=== PATIENT | female | born 1980 ===

== ENCOUNTER 2018-04-16 13:05 | Emergency (ER) | payer SELFPAY ==
[2018-04-16 13:11] VITALS: TEMP 98.3
[2018-04-16] MEDS ORDERED: Tdap Vaccine 0.5 ml Vial (10-64 yrs) IM ONE ×2 (13:52→14:01)
[2018-04-16] MEDS ORDERED: Epinephrine /Lidocaine HCL 1:100,000/2% 30 ml INJ STA (13:52)
[2018-04-16] MEDS ORDERED: Lidocaine 2% w Epi 1:200,000 Pf Inj IJ ONE (14:15)
[2018-04-16 14:46] VITALS: BP 147/89; PULSE 89; RESP 20; O2SAT 97
--- NOTE | 2018-04-16 16:36 | C.PDOC ---
History Of Present Illness 37 y/o female presents to ED s/p trip and fall for evaluation of laceration sustained to right eyebrow. Patient denies change in vision, loc, head injury, vision changes or any other complaints at this time. Tetanus vaccine unknown Chief Complaint (Nursing): Abnormal Skin Integrity History Per: Patient History/Exam Limitations: no limitations Onset/Duration Of Symptoms: Days Current Symptoms Are (Timing): Still Present Past Medical History Reviewed: Historical Data, Nursing Documentation, Vital Signs Vital Signs: Last Vital Signs Temp 98.3 F 04/16/18 14:43 Pulse 89 04/16/18 14:43 Resp 20 04/16/18 14:43 BP 147/89 04/16/18 14:43 Pulse Ox 97 04/16/18 16:38 - Medical History PMH: No Chronic Diseases Surgical History: No Surg Hx Family History: States: No Known Family Hx - Social History Hx Alcohol Use: No Hx Substance Use: No - Immunization History Hx Tetanus Toxoid Vaccination: No Hx Influenza Vaccination: No Hx Pneumococcal Vaccination: No Review Of Systems Constitutional: Negative for: Fever, Chills Eyes: Negative for: Vision Change Cardiovascular: Negative for: Chest Pain Respiratory: Negative for: Shortness of Breath Skin: Positive for: Other (laceration). Negative for: Rash Physical Exam - Physical Exam Appears: Non-toxic, No Acute Distress Skin: Warm, Dry, No Rash Head: Laceration (vertical 1cm above right eyebrow. No active bleeding) Eye(s): bilateral: Normal Inspection, EOMI Nose: Normal Oral Mucosa: Moist Cardiovascular: Rhythm Regular Respiratory: Normal Breath Sounds, No Rales, No Rhonchi, No Wheezing Gastrointestinal/Abdominal: Soft, No Tenderness, No Guarding, No Rebound Neurological/Psych: Oriented x3, Normal Speech, Normal Cognition ED Course And Treatment O2 Sat by Pulse Oximetry: 97 (RA) Pulse Ox Interpretation: Normal Laceration - Laceration Repair right eyebrow Wound Length (In cm): 1 Description Of Wound: Linear Wound Cleansed With: Betadine, Sterile Saline Anesthesia: Lidocaine 2%, With Epi Wound Examination: Irrigated With Saline Wound Closure: Suture (3) Suture Technique And Material Used: Interrupted, Nylon (5-O) Disposition - Disposition Referrals: [facility] Neva Levine, [Non-Staff] - Disposition: HOME/ ROUTINE Disposition Time: 14:30 Condition: IMPROVED Additional Instructions: ELIAS FITZPATRICK, thank you for letting us take care of you today. Your provider was Haja Samaniego DO and you were treated for FALL/LACERATION ON FACE. The emergency medical care you received today was directed at your acute symptoms. If you were prescribed any medication, please fill it and take as directed. It may take several days for your symptoms to resolve. Return to the Emergency Department if your symptoms worsen, do not improve, or if you have any other problems. Please contact your doctor or call one of the physicians/clinics you have been referred to that are listed on the Patient Visit Information form that is included in your discharge packet. Bring any paperwork you were given at discharge with you along with any medications you are taking to your follow up visit. Our treatment cannot replace ongoing medical care by a primary care provider outside of the emergency department. Thank you for allowing the [facility] team to be part of your care today. Follow up with your doctor in 5 days for suture removal. ELIAS FITZPATRICK, [place] por dejarnos atenderlo concettay. Alexander proveedor fue Haja Samaniego DO y usted recibi tratamiento por OTOO / LACERACIN EN LA JANE. La atencin mdica de emergencia que recibi hoy estaba dirigida a odilia sntomas agudos. Si le prescribieron algn medicamento, llnelo y tome segn las indicaciones. Odilia sntomas pueden tardar varios patel en resolverse. Regrese al Departamento de Emergencia si odilia sntomas empeoran, no mejoran o si tiene algn otro problema. Comunquese con alexander mdico o llame a taj de los mdicos / clnicas a los que mcgowan sido referido que figura en el formulario de Informacin de visita del paciente que se incluye en alexander paquete de ronna. Traiga todos los documentos que recibi al momento del ronna junto con los medicamentos que est tomando en alexander visita de seguimiento. Nuestro tratamiento no puede reemplazar la atencin mdica en curso por un proveedor de atencin primaria fuera del departamento de emergencia. [place] por permitir que el equipo de [facility] sea parte de alexander cuidado hoy. Sandy un seguimiento con alexander mdico en 5 patel para la extraccin de la sutura. Instructions: Laceration Repair With Stitches (DC) Forms: Gen Discharge Inst Djib[place]ian, LocalCustomer (Djiboutian) Print Language: EAST TIMORESE - Clinical Impression Clinical Impression: Laceration of skin - Scribe Statement The provider has reviewed the documentation as recorded by the Scribe Edmar Vázquez All medical record entries made by the Scribe were at my direction and personally dictated by me. I have reviewed the chart and agree that the record accurately reflects my personal performance of the history, physical exam, medical decision making, and the department course for this patient. I have also personally directed, reviewed, and agree with the discharge instructions and disposition.
== END 2018-04-16 14:44 | disposition home or self-care (01) ==
LOC: C.ER 13:05
DX: S01.111A Laceration without foreign body of right eyelid and periocular area, initial encounter (principal); W01.0XXA Fall on same level from slipping, tripping and stumbling without subsequent striking against object, initial encounter